=== PATIENT | male | born 1960 | race Caucasian/White ===

== ENCOUNTER 2024-09-16 12:08 | Emergency (ER) | payer BC, SELFPAY ==
[2024-09-16] VITALS (14 sets, daily range): BP systolic 109–156; BP diastolic 76–104; BMI 25.2
[2024-09-16] MEDS: NSS 1000 IV (12:37)
--- NOTE | 2024-09-16 12:47 | ED.GENMED ---
History of Present Illness
General
Chief Complaint: Heart Rate Problem
Source: patient
Exam Limitations: none
Time Seen by Provider: 09/16/24 12:28
History of Present Illness
History of Present Illness:
64-year-old healthy male sudden onset of heart racing some lightheadedness this morning. History of atrial fibrillation PAF in the past. Has required cardioversion although years ago. No chest pain shortness of breath syncope or other complaints.
Symptoms have been for 3 to 4 hours
Past History
Past History
ED Past Medical History: Arrthythmia (Remote history for atrial fibrillation)
ED Past Surgical History: None
Social History
Tobacco: Non-smoker
Personal:
Living: with family
Employment: Employed
Review of Systems
Review of Systems
All Other Systems: Not applicable
Cardiac: Denies chest pain or syncope
Phy Exam
Physical Exam
Physical Exam:
GENERAL: Alert and oriented in no apparent distress
EYE: Orbits normal.
NECK: Supple, no thyroid palpable
CARDIAC: Irregular irregular. Mild tachycardia
LUNGS: Clear breath sounds,normal
ABDOMEN: Soft, without focal tenderness or distention
NEUROLOGICAL: Alert and oriented , grossly non-focal
SKIN: Warm and dry, no rash or lesion, no discoloration, skin intact.
MUSCULOSKELETAL: No edema,no deformity.Good color
PSYCH: Normal and appropriate interaction.
Course
Orders/Labs/Results
Orders:
Orders
09/16/24 12:09
Electrocardiogram (*1) Urgent
Reason for Study: Atrial Fibrillation
09/16/24 12:10
EKG- Treatment ONCE
09/16/24 12:28
0.9% Sodium Chloride 1000 ml [Nss] 1,000 ml IV BOLUS
09/16/24 12:33
CMP [Comprehensive Metabolic Panel] Urgent
Complete Blood Count/With Diff Urgent
PSA, Total - Screen Urgent
Comment: ADD ON
TSH Reflex To Free T4 Urgent
09/16/24 12:43
Propafenone HCl [Rythmol] 600 mg PO NOW STA
09/16/24 13:07
Add On- LAB Urgent
Tests Added?: PSA
09/16/24 16:28
Propofol [Diprivan] 40 ml .ROUTE .STK-MED
09/16/24 16:36
Electrocardiogram (*1) Urgent
Reason for Study: Palpitations
EKG- Treatment ONCE
09/16/24 17:26
EKG [Electrocardiogram (*1)] Urgent
Reason for Study: Other
Other Reason for Exam: Post cardioversion
EKG- Treatment ONCE
09/16/24 17:44
Apixaban [Eliquis] 5 mg PO NOW STA
Abnormal Lab Results
09/16/24
12:33
MPV 11.8 H fL
(7.4-10.4)
Absolute Neuts (auto) 8.1 H 10^3/uL
(1.4-6.5)
Absolute Lymphs (auto) 1.1 L 10^3/uL
(1.2-3.4)
Absolute Monos (auto) 0.8 H 10^3/uL
(0.1-0.6)
Neutrophils % 80.2 H %
(42.2-75.2)
Lymphocytes % 11.1 L %
(20.5-51.1)
Glucose 108 H mg/dl
(70-99)
AST 272 H U/L
(17-59)
ALT 79 H U/L
(0-50)
09/16/24 12:33
09/16/24 12:33
Vital Signs
Initial and Last Documented VS:
Initial Vital Signs
Temp Pulse Resp BP Pulse Ox
98.6 F 98 18 151/99 98
09/16/24 12:14 09/16/24 12:14 09/16/24 12:14 09/16/24 12:14 09/16/24 12:14
Last Documented Vital Signs
Temp Pulse Resp BP Pulse Ox
98.2 F 54 12 130/93 98
09/16/24 17:30 09/16/24 18:00 09/16/24 18:00 09/16/24 18:00 09/16/24 18:00
Procedures
Cardioversion
Indication:: Afib
Performed by:: Myself
Synchronized?: Yes
Energy Used: 150 joules
Successful?: Yes
ASA Risk Score: Class I
Any reaction or bad outcome to prior sedation/anesthesia?: No history of a reaction
Sedation level to be attained: moderate
Chart and allergies reviewed: Yes
Patient reassessed prior to sedation: Yes
Time out completed at (validating right patient & procedure): 16:50
History of difficult intubation: No
Airway free of obstruction: Yes
Patient has a gag reflex: Yes
Patient is able to open mouth: Yes
Patient has no dentures: Yes
Patient has no loose teeth: Yes
Medication administered by Provider during Moderate Sedation: IV Propofol (mg)
Total dose administered: 130
Time drug administered: 16:50
Start Time: 16:50
Stop Time: 17:05
MDM/Problems Addressed
Differential Diagnosis Includes:
Atrial flutter with reasonable rate. Enrique vas 0. Discussed options with patient. Discussed with cardiology. They recommended propafenone. He is in agreement. Aware of the risk and proarrhythmia effect of all antiarrhythmics both chemical and
electrical
*Pulse Oximetry
Patient hypoxic: no
*EKG
Interpreted by ED Provider?: Yes
Interpretation: abnormal
Heart Rate: 96
Rate: normal
Rhythm: atrial flutter
QRS Pattern: right bundle branch block (inc)
*Director Of Financial Planning Interpretation
Rate: tachycardiac
Interpretation: abnormal
Heart Rate: 104
Rhythm: atrial flutter
*Critical Care Note
Total Time (30-74mins, 75-104mins- exclusive of procedures): 20
Update Note
Update Note:
Patient is been rechecked multiple times. Remains in rate controlled atrial fibrillation.
Repeat EKG sinus bradycardia 55. Incomplete right bundle branch block. No acute changes.
Patient aware that he should be taking Eliquis 5 twice daily. He will okay tonight's dose. Will follow-up with cardiology
ED Attending Note
-
Portions of this chart may have been created with voice recognition software.� Occasional wrong word or��sound alike� substitutions may have occurred due to the inherent limitations of voice recognition software.
Discharge Plan
Departure
Patient Disposition: Home (Routine Discharge)
Date of Disposition: 09/16/24
Time of Disposition: 17:35
Patient with high blood pressure during this ER visit?: No
Discharge Problem:
Paroxysmal atrial flutter
Instructions: Atrial Fibrillation (DC), How to take anticoagulants safely
Prescriptions:
No Action
multivitamin [Daily Multiple] 1 EACH tablet
1 ea PO DAILY
aspirin 325 MG tablet
325 mg PO DAILY
docosahexaenoic acid-epa 1 CAP capsule
1 cap PO DAILY
Vitamin D
1 tab PO DAILY
metoprolol tartrate 25 MG tablet
25 mg PO Daily PRN (Reason: Prn for palpitaions) Qty: 20 0RF
cephalexin 500 MG capsule
500 mg PO QID Qty: 28 0RF
Referrals:
NONE,* [Family Provider] -
Activity Restrictions/Additional Instructions:
Follow-up closely with cardiology
Interventions
Interventions:
*Risk Screen - Suicide Last Done: 09/16/24 12:14
*General Assessment Last Done: 09/16/24 12:14
*Neglect/Abuse Screening Last Done: 09/16/24 12:14
ED- Fall Risk Assessment Last Done: 09/16/24 18:08
*ED COVID-19 Vaccine History Last Done: 09/16/24 12:14
*Nursing Disposition Last Done: 09/16/24 18:08
ED- Cardiac Assessment Last Done: 09/16/24 12:38
ED- Pulmonary Assessment Last Done: 09/16/24 12:38
Discharge Date and Time
Discharge Date/Time: 09/16/24 18:08
Print Language: SERBIAN
[2024-09-16] MEDS: RYTHMOL 600 MG PO (12:53)
[2024-09-16 12:59] LABS: ALT (SGPT) 79 U/L (0-50); AST (SGOT) 272 U/L (17-59); Albumin 4.8 g/dl (3.5-5.0); Alkaline Phosphatase 54 U/L (38-126); Blood Urea Nitrogen 20 mg/dl (9-20); Calcium 9.5 mg/dl (8.4-10.2); Carbon Dioxide 26 mmol/L (22-30); Chloride 104 mmol/L (98-107); Estimated Creatinine Clearance 64 ml/min; Glucose 108 mg/dl (70-99); Potassium 4.6 mmol/L (3.5-5.1); Sodium 140 mmol/L (135-145); Total Bilirubin 1.3 mg/dl (0.2-1.3); Total Protein 7.5 g/dl (6.3-8.2); eGFR > 60.00
[2024-09-16 13:02] LABS: % Basophils 0.4 % (0-2); % Eosinophils 0.1 % (0-6); % Immature Granulocytes 0.4 % (0-0.5); % Lymphocytes 11.1 % (20.5-51.1); % Monocytes 7.8 % (1.7-9.3); % Neutrophils 80.2 % (42.2-75.2); Absolute Lymphocytes 1.1 10^3/uL (1.2-3.4); Absolute Monocytes 0.8 10^3/uL (0.1-0.6); Absolute Neutrophils 8.1 10^3/uL (1.4-6.5); Hemoglobin 15.1 g/dL (13.0-18.0); Mean Corp Hgb Conc. 34.3 g/dL (33.0-37.0); Mean Corpuscular Hgb 29.7 pg (27.0-31.0); Mean Corpuscular Volume 86.6 fL (80.0-94.0); Mean Platelet Volume 11.8 fL (7.4-10.4); Nucleated Red Blood Cells % 0 % (-); Platelet Count 159 10^3/uL (130-400); Red Blood Cell Count 5.08 10^6/uL (4.70-6.10); Red Cell Dist. Width 13.3 % (11.5-14.5); White Blood Cell Count 10.1 10^3/uL (4.8-10.8)
[2024-09-16 13:31] LABS: TSH Reflex To Free T4 3.23 uIU/ml (0.47-4.68)
[2024-09-16 13:50] LABS: PSA, Total - Screen 1.55 ng/ml (0.0-4.0)
[2024-09-16] MEDS: ELIQUIS 5 MG PO (17:50)
== END 2024-09-16 18:08 | disposition home or self-care (01) ==
LOC: EMR 12:08
PROVIDERS: Emergency Medicine; EMERGENCY PHYSICIAN Emergency Medicine
DX: I48.92 Unspecified atrial flutter (principal)
CPT/HCPCS: 99284; 92960; 96360; 80053; 84443; 85025; 93005; G0103

== ENCOUNTER → 2024-09-21 09:24 | Outpatient (REF) | payer BC, SELFPAY | LOC: RAD 09:24 | PROVIDERS: ATTENDING PHYSICIAN Internal Medicine Gastroenterology | DX: R10.11 Right upper quadrant pain (principal); R74.01 Elevation of levels of liver transaminase levels | CPT/HCPCS: 76700 ==

== ENCOUNTER → 2024-09-28 09:52 | Outpatient (REF) | payer BC, SELFPAY | LOC: RCS 09:52 | PROVIDERS: ATTENDING PHYSICIAN Internal Medicine Cardiovascular Disease | DX: I48.91 Unspecified atrial fibrillation (principal); I48.92 Unspecified atrial flutter | CPT/HCPCS: 93306 ==

== ENCOUNTER → 2025-02-22 14:18 | Outpatient (REF) | payer BC, SELFPAY | LOC: RCS 14:18 | PROVIDERS: ATTENDING PHYSICIAN Internal Medicine Cardiovascular Disease | DX: R07.89 Other chest pain (principal); R00.2 Palpitations; R06.09 Other forms of dyspnea; I48.92 Unspecified atrial flutter | CPT/HCPCS: 93017; 93350 ==

== ENCOUNTER → 2025-05-08 15:52 | Outpatient (REF) | payer BC, SELFPAY | LOC: EMG 15:52 | PROVIDERS: ATTENDING PHYSICIAN Orthopaedic Surgery Hand Surgery | DX: R20.0 Anesthesia of skin (principal) | CPT/HCPCS: 95886; 95909 ==

== ENCOUNTER → 2025-05-23 17:30 | Outpatient (REF) | payer BC, SELFPAY | LOC: MRI 17:30 | PROVIDERS: ATTENDING PHYSICIAN Nurse Practitioner Adult Health | DX: I48.91 Unspecified atrial fibrillation (principal); S64.9 Injury of unspecified nerve at wrist and hand level; M50.30 Other cervical disc degeneration, unspecified cervical region | CPT/HCPCS: 72141; 73223; A9575 ==